=== PATIENT | female | born 1970 | race African-American/Black ===

== ENCOUNTER 2016-11-04 15:54 | Emergency (ER) | payer OTHER ==
[~2016-11-04] VITALS: Ht 172.7 cm; Wt 58.5 kg
--- NOTE | ~2016-11-04 | EKG ---
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: [facility] : 1970 Requested By: Diandra Nunn Order Number: [id number] MD: Eldon Abad Measurements Intervals [place] Rate: 61 P: 74 DC: 155 QRS: 70 QRSD: 85 T: 179 QT: 426 QTc: 429 Interpretive Statements Sinus rhythm Probable left atrial enlargement LVH with secondary repolarization abnormality No previous ECG available for comparison Electronically Signed On 11-04-2016 16:53:26 HOE RUNNER by Eldon Abad [email or web address] <ELECTRONICALLY SIGNED> By: Eldon Abad MD 11/04/16 1653 1558 1558 MD FRIEDA Mullen
--- NOTE | ~2016-11-04 | EKG ---
[place] [address] [facility] [place] [address] ELECTROCARDIOGRAM REPORT Name: DIDIER MAYER Room #: DEP TAMIKO Sim#: [id number] Admission: 11/04/16 Attend Phys: Discharge: 11/04/16 Date of : 68 Report #: [id number] THIS REPORT FOR: //name// 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 : 1970 Requested By: Diandra Nunn Order Number: [id number] MD: Tejas Hand Measurements Intervals [place] Rate: 68 P: 55 ND: 145 QRS: 57 QRSD: 83 T: 227 QT: 416 QTc: 443 Interpretive Statements Sinus rhythm LVH with secondary repolarization abnormality Compared to ECG 11/04/2016 15:58:11 No significant change was found Electronically Signed On 11-05-2016 8:31:38 DIRECTOR OF MARKET ANALYSIS by Tejas Hand [email or web address] <ELECTRONICALLY SIGNED> By: Tejas Hand MD, MERGED WITH [facility] 11/05/16 0831 1752 51 Tejas Hand MD, FACC /EPI
[2016-11-04] MEDS ORDERED: NEURONTIN 300300 M1 (16:05)
[2016-11-04] MEDS ORDERED: PRINIVIL20 MG (16:05)
[2016-11-04] MEDS ORDERED: LASIX 20 MG TAB20 MG PO ×2 (16:06→17:30)
[2016-11-04 16:21] LABS: ABSOLUTE NEUTROPHILS 2.5 thou/uL (1.4-8.2); EOSINOPHILS 4.3 % (0.0-3.0); HEMATOCRIT 35.1 % (37.0-47.0); HEMOGLOBIN 12.2 gm/dL (12.0-15.0); LYMPHOCYTES 31.6 % (24.0-44.0); MCH 33.1 pg (26.0-34.0); MCHC 34.7 % (28.0-37.0); MCV 95.3 fL (80.0-100.0); MONOCYTES 6.1 % (1.0-8.0); PLATELET COUNT 177 thou/uL (150-400); RBC 3.69 mil/uL (4.20-5.00); RDW 13.3 % (10.5-14.5); WBC 4.4 thou/uL (4.0-11.0)
[2016-11-04 16:29] LABS: ANION GAP 10 mmol/L (7-16); BUN 14 mg/dL (7-18); CALCIUM 8.4 mg/dL (8.5-10.1); CHLORIDE 109 mmol/L (98-107); CO2 27 mmol/L (21-32); CREATININE 1.2 mg/dL (0.6-1.3); GLUCOSE 91 mg/dL (70-99); SODIUM 146 mmol/L (136-145)
[2016-11-04 16:32] LABS: MANUAL DIFF NO
[2016-11-04 16:40] LABS: ALBUMIN 3.5 g/dL (3.4-5.0); ALKALINE PHOSPHATASE 78 U/L (46-116); SGOT 23 U/L (15-37); SGPT 17 U/L (30-65); TOTAL BILIRUBIN 0.2 mg/dL (<0.1-1.0); TOTAL PROTEIN 6.9 g/dL (6.4-8.2); TROPONIN-I < 0.04 ng/mL (<0.04-0.07)
[2016-11-04 17:01] LABS: NT-PRO BRAIN NAT PEPTIDE 1370 pg/mL (<300)
[2016-11-04 17:15] LABS: URINE BILIRUBIN NEGATIVE (Negative); URINE BLOOD NEGATIVE (Negative); URINE COLOR YELLOW; URINE GLUCOSE-RANDOM* NEGATIVE (Negative); URINE KETONES NEGATIVE (Negative); URINE NITRITE NEGATIVE (Negative); URINE PROTEIN (DIPSTICK) NEGATIVE (Negative); URINE UROBILINOGEN 0.2 E.U./dl (0.2-1.0)
[2016-11-04 17:26] LABS: AMP/METHAMP Negative (Negative); BARBITURATES Negative (Negative); BENZODIAZEPINES Negative (Negative); COCAINE POSITIVE (Negative); METHADONE Negative (Negative); OPIATES Negative (Negative); PCP Negative (Negative); THC Negative (Negative)
[2016-11-04] MEDS ORDERED: VENTOLIN HFA 1818 GM INH ×2 (17:26→17:30)
[2016-11-04] MEDS ORDERED: PRINIVIL20 MG PO (17:30)
[2016-11-04] MEDS ORDERED: NEURONTIN 300300 M1 PO (17:30)
[2016-11-04 18:12] VITALS: BP 183/100
[2016-12-08] MEDS ORDERED: LISINOPRIL20 MG PO (16:23)
[2016-12-13] MEDS ORDERED: NORCO 5-325 TA1 EACH PO (21:43)
== END 2016-11-04 18:14 | disposition home or self-care (01) ==
LOC: ER 15:54
PROVIDERS: Nurse Practitioner Family
DX: J44.1 Chronic obstructive pulmonary disease with (acute) exacerbation (principal); F41.9 Anxiety disorder, unspecified; F14.10 Cocaine abuse, uncomplicated; I50.9 Heart failure, unspecified; F17.210 Nicotine dependence, cigarettes, uncomplicated; E11.9 Type 2 diabetes mellitus without complications; Z88.0 Allergy status to penicillin; Z88.6 Allergy status to analgesic agent

== ENCOUNTER 2016-11-05 09:20 | Inpatient (IN) | payer OTHER ==
[~2016-11-05] VITALS: Ht 172.7 cm; Wt 57.1 kg
--- NOTE | ~2016-11-05 | EKG ---
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11 : 1970 Requested By: Diandra Nunn Order Number: [id number] MD: Eldon Abad Measurements Intervals [place] Rate: 64 P: 67 HI: 150 QRS: 62 QRSD: 90 T: 135 QT: 436 QTc: 450 Interpretive Statements Sinus rhythm Probable left atrial enlargement LVH with secondary repolarization abnormality Baseline wander in lead(s) V3 Compared to ECG 11/04/2016 17:52:42 No significant changes Electronically Signed On 11-05-2016 10:08:06 HAMMER OPERATOR by Eldon Abad [email or web address] <ELECTRONICALLY SIGNED> By: Eldon Abad MD 11/05/16 1008 2 2 Eldon Abad MD /MAXIMILIANO
[~2016-11-05 09:20] MED LIST: LASIX 20 MG TAB20 MG PO; NEURONTIN 300300 M1; NEURONTIN 300300 M1 PO; PRINIVIL20 MG; PRINIVIL20 MG PO; VENTOLIN HFA 1818 GM INH
[2016-11-05 09:21] VITALS: BP 149/96
[2016-11-05 09:56] LABS: ABSOLUTE NEUTROPHILS 3.4 thou/uL (1.4-8.2); EOSINOPHILS 0.2 % (0.0-3.0); HEMATOCRIT 36.2 % (37.0-47.0); HEMOGLOBIN 12.7 gm/dL (12.0-15.0); LYMPHOCYTES 14.7 % (24.0-44.0); MCH 33.3 pg (26.0-34.0); MONOCYTES 8.1 % (1.0-8.0); PLATELET COUNT 181 thou/uL (150-400); RBC 3.81 mil/uL (4.20-5.00); WBC 4.5 thou/uL (4.0-11.0)
[2016-11-05 09:57] LABS: MANUAL DIFF NO
[2016-11-05 10:48] LABS: ANION GAP 11 mmol/L (7-16); BUN 19 mg/dL (7-18); CALCIUM 9.2 mg/dL (8.5-10.1); CHLORIDE 106 mmol/L (98-107); CO2 25 mmol/L (21-32); GLUCOSE 100 mg/dL (70-99); POTASSIUM 4.5 mmol/L (3.5-5.1); SODIUM 142 mmol/L (136-145)
[2016-11-05 11:01] LABS: ALBUMIN 3.6 g/dL (3.4-5.0); ALKALINE PHOSPHATASE 72 U/L (46-116); NT-PRO BRAIN NAT PEPTIDE 2689 pg/mL (<300); SGOT 23 U/L (15-37); SGPT 17 U/L (30-65); TOTAL BILIRUBIN 0.2 mg/dL (<0.1-1.0); TOTAL PROTEIN 7.4 g/dL (6.4-8.2); TROPONIN-I < 0.04 ng/mL (<0.04-0.07)
[2016-11-05 11:27] LABS: URINE BILIRUBIN NEGATIVE (Negative); URINE BLOOD NEGATIVE (Negative); URINE COLOR YELLOW; URINE GLUCOSE-RANDOM* NEGATIVE (Negative); URINE KETONES NEGATIVE (Negative); URINE NITRITE NEGATIVE (Negative); URINE PROTEIN (DIPSTICK) NEGATIVE (Negative); URINE SPECIFIC GRAVITY 1.025 (1.003-1.035); URINE UROBILINOGEN 0.2 E.U./dl (0.2-1.0)
[2016-11-05 12:00] VITALS: BP 158/84
[2016-12-08] MEDS ORDERED: LISINOPRIL20 MG PO (16:23)
[2016-12-13] MEDS ORDERED: NORCO 5-325 TA1 EACH PO (21:43)
== END 2016-11-05 13:00 | disposition left against medical advice (07) | DRG 189 ==
LOC: ER 09:20 → EROBS 11:20 → 3N 11:20
PROVIDERS: Nurse Practitioner Family
DX: J96.01 Acute respiratory failure with hypoxia (principal); J44.1 Chronic obstructive pulmonary disease with (acute) exacerbation; F41.9 Anxiety disorder, unspecified; F14.10 Cocaine abuse, uncomplicated; I10 Essential (primary) hypertension; E11.40 Type 2 diabetes mellitus with diabetic neuropathy, unspecified; F17.210 Nicotine dependence, cigarettes, uncomplicated; I50.9 Heart failure, unspecified; Z98.890 Other specified postprocedural states; Z88.6 Allergy status to analgesic agent; Z88.0 Allergy status to penicillin; Z79.4 Long term (current) use of insulin
CPT/HCPCS: 10096

== ENCOUNTER 2019-11-01 02:38 | Emergency (ER) | payer OTHER ==
[~2019-11-01] VITALS: Ht 172.7 cm; Wt 65.8 kg
[~2019-11-01 02:38] MED LIST changes: +LISINOPRIL20 MG PO; +NORCO 5-325 TA1 EACH PO
[2019-11-01 03:46] LABS: ABSOLUTE NEUTROPHILS 3.8 thou/uL (1.4-8.2); BASOPHILS 1.2 % (0.0-2.0); EOSINOPHILS 3.4 % (0.0-3.0); HEMATOCRIT 42.2 % (37.0-47.0); HEMOGLOBIN 14.1 gm/dL (12.0-15.0); LYMPHOCYTES 25.2 % (24.0-44.0); MCH 31.4 pg (26.0-34.0); MCHC 33.3 g/dL (28.0-37.0); MCV 94.2 fL (80.0-100.0); MONOCYTES 7.8 % (1.0-8.0); PLATELET COUNT 365 thou/uL (150-400); POLYS 62.4 % (36.0-66.0); RBC 4.48 mil/uL (4.20-5.00); WBC 6.1 thou/uL (4.0-11.0)
[2019-11-01 03:47] LABS: ANION GAP 20 mmol/L (7-16); BUN 21 mg/dL (7-18); CHLORIDE 99 mmol/L (98-107); CO2 18 mmol/L (21-32); GLUCOSE 49 mg/dL (74-106); POTASSIUM 4.8 mmol/L (3.5-5.1); SODIUM 137 mmol/L (136-145)
[2019-11-01 03:56] LABS: TROPONIN-I <0.06 ng/mL (<0.06)
[2019-11-01 06:19] LABS: CALCIUM 9.5 mg/dL (8.5-10.1); CREATININE 1.3 mg/dL (0.6-1.0)
[2019-11-01 08:18] LABS: INR 2.6; PROTIME 26.7 Seconds (9.3-11.4)
[2019-11-01 08:30] VITALS: BP 131/85
--- NOTE | 2019-11-01 10:57 | EKG ---
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 : 1970 Requested By: Hong Munson Order Number: [id number] MD: Dar Ramos Measurements Intervals [place] Rate: 79 P: 80 TX: 138 QRS: 66 QRSD: 88 T: QT: 408 QTc: 468 Interpretive Statements Sinus rhythm Atrial premature complex Biatrial enlargement LVH with secondary repolarization abnormality Compared to ECG 12/13/2016 18:56:10 Atrial premature complex(es) now present Atrial abnormality now present Electronically Signed On 11-01-2019 10:57:14 OCCUPATIONAL HEALTH SPECIALIST by Dar Ramos [email or web address] <ELECTRONICALLY SIGNED> By: Dar Ramos MD 11/01/19 1057 0242 1 MD FRIEDA Fernandes
== END 2019-11-01 09:27 | disposition home or self-care (01) ==
LOC: ER 02:38
PROVIDERS: Emergency Medicine
DX: T87.89 Other complications of amputation stump (principal); R06.00 Dyspnea, unspecified; R07.89 Other chest pain; E11.9 Type 2 diabetes mellitus without complications; J44.9 Chronic obstructive pulmonary disease, unspecified; I12.9 Hypertensive chronic kidney disease with stage 1 through stage 4 chronic kidney disease, or unspecified chronic kidney disease; I50.9 Heart failure, unspecified; F17.210 Nicotine dependence, cigarettes, uncomplicated; Z98.890 Other specified postprocedural states; Z88.0 Allergy status to penicillin; Z88.6 Allergy status to analgesic agent; Y83.8 Other surgical procedures as the cause of abnormal reaction of the patient, or of later complication, without mention of misadventure at the time of the procedure; Y92.89 Other specified places as the place of occurrence of the external cause

== ENCOUNTER 2019-12-14 07:52 | Emergency (ER) | payer OTHER ==
[~2019-12-14] VITALS: Ht 172.7 cm; Wt 64.9 kg
--- NOTE | 2019-12-14 08:22 | EKG ---
[facility] [place] [address] [place] [address] ELECTROCARDIOGRAM REPORT Name: DIDIER MAYER Room #: PRE M.R.#: [id number] Admission: Attend Phys: Discharge: Date of : 68 Report #: [id number] THIS REPORT FOR: cc: [facility] - Clinic physician unknown [facility] - Clinic physician unknown Tejas Hand MD [facility] ~ THIS REPORT FOR: //name// [facility] ED Test Date: 2019-12-14 Test Time: 07:56:28 Pat Name: DIDIER MAYER Department: Room: Gender: F Ppap Coordinator: BONI : 1970 Requested By: Joi Ramos Order Number: [id number] MD: Tejas Hand Measurements Intervals [place] Rate: 64 P: 79 ND: 149 QRS: 72 QRSD: 90 T: 202 QT: 444 QTc: 458 Interpretive Statements Sinus rhythm Probable LVH with secondary repol abnrm Compared to ECG 11/01/2019 02:42:26 Atrial premature complex(es) no longer present Electronically Signed On 12-14-2019 8:21:38 HAND SPRING REPAIRER HELPER by Tejas Hand [email or web address] <ELECTRONICALLY SIGNED> By: Tejas Hand MD, FAC 12/14/19 0821 0756 0756 Tejas Hand MD, [facility] /EPI
[2019-12-14 08:25] LABS: ABSOLUTE NEUTROPHILS 2.5 thou/uL (1.4-8.2); BASOPHILS 0.9 % (0.0-2.0); HEMATOCRIT 41.5 % (37.0-47.0); LYMPHOCYTES 26.7 % (24.0-44.0); MCH 32.4 pg (26.0-34.0); MCHC 33.8 g/dL (28.0-37.0); MCV 95.9 fL (80.0-100.0); MONOCYTES 8.8 % (1.0-8.0); PLATELET COUNT 256 thou/uL (150-400); POLYS 58.6 % (36.0-66.0); RBC 4.33 mil/uL (4.20-5.00); RDW 14.4 % (10.5-14.5); WBC 4.2 thou/uL (4.0-11.0)
[2019-12-14] MEDS ORDERED: COUMADIN 3 MG TA3 MG PO (08:26)
[2019-12-14 08:38] LABS: ANION GAP 9 mmol/L (7-16); BUN 18 mg/dL (7-18); CHLORIDE 103 mmol/L (98-107); CO2 30 mmol/L (21-32); CREATININE 0.9 mg/dL (0.6-1.0); GLUCOSE 75 mg/dL (74-106); PROTIME 10.2 Seconds (9.3-11.4); SODIUM 142 mmol/L (136-145)
[2019-12-14 08:39] LABS: POTASSIUM 4.6 mmol/L (3.5-5.1)
[2019-12-14 08:47] LABS: TROPONIN-I <0.06 ng/mL (<0.06)
[2019-12-14 09:48] VITALS: BP 148/76
== END 2019-12-14 11:04 | disposition left against medical advice (07) ==
LOC: ER 07:52
PROVIDERS: Emergency Medicine Emergency Medical Services
DX: R07.9 Chest pain, unspecified (principal); I11.0 Hypertensive heart disease with heart failure; I50.9 Heart failure, unspecified; E11.9 Type 2 diabetes mellitus without complications; J44.9 Chronic obstructive pulmonary disease, unspecified; F17.210 Nicotine dependence, cigarettes, uncomplicated; Z98.890 Other specified postprocedural states; Z95.5 Presence of coronary angioplasty implant and graft; Z88.0 Allergy status to penicillin; Z88.6 Allergy status to analgesic agent